=== PATIENT | female | born 1970 | race Caucasian/White ===

== ENCOUNTER 2024-05-30 14:56 | Outpatient (CLI) | payer BC | END 2024-05-30 14:57 | disposition home or self-care (01) | LOC: CSHMRI 14:56 | PROVIDERS: ATTEND Family Medicine | DX: M51.16 Intervertebral disc disorders with radiculopathy, lumbar region (principal); M43.17 Spondylolisthesis, lumbosacral region; M48.07 Spinal stenosis, lumbosacral region | CPT/HCPCS: 72100; 72148 ==